=== PATIENT | male | born 1960 | race African-American/Black ===

== ENCOUNTER 2018-08-17 11:50 | Inpatient (IN) | payer SELFPAY ==
[2018-08-17] MEDS ORDERED: FOSPHENYTOIN PE 1,000 MG in NA CHLORIDE 0.9% 100 ML IV ONE (13:00)
[2018-08-17] MEDS ORDERED: NA CHLORIDE 0.9% 1,000 ML ONE ×2 (13:05→14:53)
[2018-08-17] MEDS ORDERED: ONDANSETRON 4 MG/2 ML VIAL ONE (13:05)
--- NOTE | 2018-08-17 13:06 | RAD REPORT ---
EXAM DESCRIPTION: RAD - Chest Single View - 08/17/2018 12:59 pm CLINICAL HISTORY: Seizure, altered mental status COMPARISON: None. TECHNIQUE: AP portable chest image was obtained 1248 hours . FINDINGS: Lungs are clear. Heart and vasculature are normal. No measurable pleural effusion and no p neumothorax. No acute bony abnormality seen. No acute aortic findings suspected. IMPRESSION: No acute cardiopulmonary process.
[2018-08-17 13:10] LABS: Absolute Lymphocytes (CBC) 0.7 K/uL (0.7-4.9); Absolute Monocytes 0.7 K/uL (0.1-1.3); Absolute Neutrophil 6.7 K/uL (1.8-8.0); Basophils % 0.9 % (0-1.3); Hematocrit 39.9 % (39.6-49.0); Lymphocytes % 8.2 % (15.3-44.8); MCH 32.5 pg (27.0-35.0); MCV 95.3 fL (80-100); MPV 8.8 fL (7.6-11.3); Monocytes % 8.7 % (3.3-12.3); RBC Red Blood Cell Count 4.19 M/uL (4.33-5.43)
[2018-08-17 13:14] LABS: Protime INR 1.07
[2018-08-17 13:41] LABS: ALT/SGPT 22 U/L (12-78); AST/SGOT 32 U/L (15-37); Albumin 4.3 g/dL (3.4-5.0); Alkaline Phosphatase 91 U/L (45-117); BUN Blood Urea Nitrogen 7 mg/dL (7-18); Bicarbonate 22 mmol/L (21-32); Bilirubin Direct 0.2 mg/dL (0-0.2); Bilirubin Total 0.7 mg/dL (0.2-1.0); CKMB Creatine Kinase MB 1.6 ng/mL (0.3-3.6); Creatine Phosphokinase 211 U/L (39-308); Glucose Level 126 mg/dL (74-106); Lipase 78 U/L (73-393); Potassium 3.5 mmol/L (3.5-5.1); Protein, Total 9.5 g/dL (6.4-8.2); Sodium Level 130 mmol/L (136-145); Troponin (Emerg Dept Use Only) < 0.02 ng/mL (0.0-0.045)
[2018-08-17 13:46] LABS: Barbiturates NEGATIVE (NEGATIVE); Benzodiazepines NEGATIVE (NEGATIVE); Cocaine NEGATIVE (NEGATIVE); METHAMPHETAM NEGATIVE (NEGATIVE); Methadone NEGATIVE (NEGATIVE); Opiates NEGATIVE (NEGATIVE); Phencyclidine NEGATIVE (NEGATIVE); THC Cannibis NEGATIVE (NEGATIVE)
[2018-08-17 13:53] LABS: Urine Blood 2+ (NEG); Urine Glucose NEGATIVE (NEG); Urine Protein 3+ (NEG); Urine pH 8.5 (5.0-7.0)
[2018-08-17 13:59] LABS: Urine Culture Reflex Order NOT NEEDED
[2018-08-17 14:00] LABS: Urine Bacteria <20 /HPF (NONE SEEN); Urine RBC <5 /HPF (NONE SEEN)
--- NOTE | 2018-08-17 14:25 | RAD REPORT ---
EXAM DESCRIPTION: CT - CTHCSPWOC - 08/17/2018 2:11 pm CLINICAL HISTORY: Trauma, head and neck injury. AMS, abrasion to head COMPARISON: No comparisons TECHNIQUE: Axial 5 mm thick images of the head were obtained. Axial 2 mm thick images of the cervical spine were obtained with sagittal and coronal reconstruction images generated and reviewed. All CT scans are performed using dose optimization technique as appropriate and may include automated exposure control or mA/KV adjustment according to patient size. FINDINGS: CT HEAD WITHOUT CONTRAST: No acute hemorrhage, hydrocephalus or extra-axial collection is identified.No areas of brain edema or midline shift. The paranasal sinuses and mastoids are clear.The calvarium is intact. CT CERVICAL SPINE WITHOUT CONTRAST: No fracture or subluxation.Mild lower cervical degenerative changes are present.No prevertebral soft tissues swelling is identified. The upper lung cadet are emphysematous. IMPRESSION: No acute intracranial or cervical spine findings. Mild lower cervical spondylosis.
--- NOTE | 2018-08-17 14:28 | RAD REPORT ---
EXAM DESCRIPTION: CTAbdomen Pelvis W Contrast - 08/17/2018 2:12 pm CLINICAL HISTORY: Abdominal pain. NAUSEA / VOMITING COMPARISON: No comparisons TECHNIQUE: Biphasic CT imaging of the abdomen and pelvis was performed with 100 ml non-ionic IV cont rast. All CT scans are performed using dose optimization technique as appropriate and may include automated exposure control or mA/KV adjustment according to patient size. FINDINGS: The lung bases are clear. Mild fatty liver infiltration is seen. No focal mass or intrahepatic biliary dilatation. The spleen, pancreas, adrenal glands and kidneys are within normal limits. No bowel obstruction, free air, free fluid or abscess. Aortic atherosclerosis present. The appendix i s normal. No evidence of significant lymphadenopathy. No suspicious bony findings. IMPRESSION: No acute intra-abdominal or pelvic finding.
--- NOTE | 2018-08-17 15:11 | EKG ---
Test Date: 2018-08-17 Test Time: 13:36:35 Telecommunications Officer: KARI MEASUREMENT RESULTS: Intervals: Rate: 119 ME: 122 QRSD: 76 QT: 320 QTc: 450 [place]: P: 82 ME: 122 QRS: 74 T: 73 INTERPRETIVE STATEMENTS: Sinus tachycardia Possible Left atrial enlargement Borderline ECG No previous ECG available for comparison Electronically Signed On 08-17-18 15:10:21 REGISTERED MAIL CLERK by Ralph Jovel
--- NOTE | 2018-08-17 15:58 | RAD REPORT ---
EXAM DESCRIPTION: MRI - Brain Wo Cont - 08/17/2018 3:31 pm CLINICAL HISTORY: New onset seizures COMPARISON: CT head same date TECHNIQUE: Sagittal T1-weighted images were obtained along with axial PD, heavily T2-weighted and T2 -FLAIR images. Axial DWI and ADC mapping sequences were also obtained along with coronal heavily T2-w eighted images. Seizure protocol study could not be performed due to motion. FINDINGS: No intracranial hemorrhage, mass or acute infarction. There is no edema or shift of midlin e structures. A few punctate areas of chronic ischemic change are present. Atrophy changes are mild b ut greater than typically seen at this age. There is a small focus of subcortical T2/IR signal abnorm ality right parietal lobe near the midline. No matching abnormality on diffusion-weighted imaging. Th is is probably an old area of ischemic injury. No mass effect to suggest underlying mass lesion. Tello -matter/white matter junction is preserved. Signal voids are seen as a normal finding in the major in tracranial vessels. No globe or orbital content abnormality. No tonsillar ectopia or sella abnormality. Mastoid air cells and paranasal sinuses are clear. IMPRESSION: No acute intracranial finding identifiable. Small focus of signal abnormality in the subcortical white matter right parietal lobe near the midlin e. This is probably an old ischemic injury. This is a potential seizure focus. Patient has a mild underlying atrophy and chronic ischemic change. Atrophy is more prominent than typ ically seen at this age.
--- NOTE | 2018-08-17 16:21 | ER ---
Nurse's Notes [facility] Name: Tariq Main Age: 58 yrs Sex: Male : 1960 Arrival Date: 08/17/2018 Time: 12:10 Bed 3 Private MD: Diagnosis: Alcohol dependence with withdrawal Presentation: 08/17 12:10 Presenting complaint: EMS states: Family on the scene states that patient was sitting aj1 on the couch, started shaking and fell to the ground. Patient has been altered since he fell. Abrasion noted to left forehead. Alert to name and place only. Patient was incontinent of bowel and bladder prior to arrival. Patient has vomited twice since arrival Family states they do not know his medical history or even where he lives. States he just shows up sometimes. Transition of care: patient was not received from another setting of care. Onset of symptoms was August 17, 2018. Risk Assessment: Do you want to hurt yourself or someone else? Patient reports no desire to harm self or others. 12:10 Method Of Arrival: EMS: [facility] aj1 12:10 Acuity: REY 2 aj1 12:13 Initial Sepsis Screen: Does the patient meet any 2 criteria? Temp <36.0*C (96.8*F)) or aj1 > 38.3*C (100.9*F). Altered Mental Status. Yes Does the patient have a suspected source of infection? No. Patient's initial sepsis screen is negative. Care prior to arrival: None. Triage Assessment: 12:14 General: Appears in no apparent distress. comfortable, slender, unkempt, Behavior is aj1 restless, uncooperative. Pain: Complains of pain in back and left knee Unable to use pain scale. Does not appear to understand pain scale. Neuro: Level of Consciousness is awake, alert, confused, Oriented to person, place, Speech is normal. Cardiovascular: Patient's skin is warm and dry. Respiratory: Airway is patent Respiratory effort is even, unlabored, Respiratory pattern is regular, symmetrical. GI: Pt is actively vomiting bile. : No signs and/or symptoms were reported regarding the genitourinary system. Derm: Skin is pink, warm \T\ dry. Skin temperature is hot. Musculoskeletal: Range of motion: intact in all extremities. Historical: - Allergies: 12:14 Unable to obtain; aj1 - Home Meds: 12:14 Unable to obtain [Active]; aj1 - PMHx: 12:14 Unable to obtain; aj1 - PSHx: 12:14 Unable to obtain; aj1 - Immunization history:: Flu vaccine status is unknown. - Social history:: Smoking status: unknown. - Ebola Screening: : Unable to complete screening because patient is disoriented, . Screenin:20 Abuse screen: Denies threats or abuse. Denies injuries from another. Nutritional aj1 screening: No deficits noted. Tuberculosis screening: No symptoms or risk factors identified. 19:49 Fall Risk Secondary diagnosis (15 points) seizures, IV access (20 points). Ambulatory rr5 Aid- None/Bed Rest/Nurse Assist (0 pts). Gait- Weak (10 pts.). Mental Status- Overestimates/Forgets Limitations (15 pts.). Total Duran Fall Scale indicates High Risk Score (45 or more points). Fall prevention measures have been instituted. Side Rails Up X 2 Placed Close to Nursing Station 1:1 Attendant Assigned Frequent Obs/Assessments Occuring. Assessment: 12:20 Reassessment: see triage note. aj1 12:50 Neuro: Seizure activity noted at this time. Seizure lasted approximately 1.5 minutes. aj1 Patient is post-ictal at this time. 12:50 Reassessment: Dr. Hall and Amor Enamorado, DRAGGER OUT at bedside/. aj1 13:50 Reassessment: Patient appears in no apparent distress at this time. No changes from aj1 previously documented assessment. Patient and/or family updated on plan of care and expected duration. Pain level reassessed. 14:50 Reassessment: Patient and/or family updated on plan of care and expected duration. Pain aj1 level reassessed. General: Appears in no apparent distress. comfortable, Behavior is calm, cooperative, appropriate for age. Pain: Denies pain. Neuro: Level of Consciousness is awake, alert, obeys commands, Oriented to person, place, time, Patient states that he is unsure how he got here or why he was sent here. Explained to patient that he had a seizure and his family called 911, and then he had another seizure here. Patient was asked when the last time he drank was and he states that it was 2 weeks ago.. Cardiovascular: Patient's skin is warm and dry. Rhythm is sinus tachycardia. Respiratory: Airway is patent Respiratory effort is even, unlabored, Respiratory pattern is regular, symmetrical. GI: Abdomen is flat, non-distended. 15:45 Reassessment: Patient appears in no apparent distress at this time. No changes from aj1 previously documented assessment. Patient and/or family updated on plan of care and expected duration. Pain level reassessed. Patient is alert, oriented x 3, equal unlabored respirations, skin warm/dry/pink. 16:30 Reassessment: Patient appears in no apparent distress at this time. No changes from aj1 previously documented assessment. Patient and/or family updated on plan of care and expected duration. Pain level reassessed. Patient is alert, oriented x 3, equal unlabored respirations, skin warm/dry/pink. 17:07 Reassessment: Patient and/or family updated on plan of care and expected duration. Pain aj1 level reassessed. General: Appears in no apparent distress. comfortable, Behavior is calm, cooperative, appropriate for age. Pain: Denies pain. Neuro: Level of Consciousness is awake, alert, obeys commands, Oriented to person, place, situation. Cardiovascular: Patient's skin is warm and dry. Cardiovascular: Rhythm is sinus tachycardia. Respiratory: Airway is patent Respiratory effort is even, unlabored, Respiratory pattern is regular, symmetrical. GI: Abdomen is flat, non-distended. : No signs and/or symptoms were reported regarding the genitourinary system. EENT: No signs and/or symptoms were reported regarding the EENT system. Derm: No signs and/or symptoms reported regarding the dermatologic system. Skin is pink, warm \T\ dry. normal. Musculoskeletal: No signs and/or symptoms reported regarding the musculoskeletal system. Circulation, motion, and sensation intact. 18:12 Reassessment: Patient appears in no apparent distress at this time. No changes from aj1 previously documented assessment. Patient and/or family updated on plan of care and expected duration. Pain level reassessed. Patient is alert, oriented x 3, equal unlabored respirations, skin warm/dry/pink. 19:15 General: Appears in no apparent distress. comfortable, Behavior is calm, cooperative, rr5 drowsy. Pain: Denies pain. Neuro: Level of Consciousness is obeys commands, confused, Oriented to person, place. Cardiovascular: Patient's skin is warm and dry. Respiratory: Airway is patent Respiratory effort is even, unlabored, Respiratory pattern is regular, symmetrical. GI: Abdomen is flat, non-distended. : No signs and/or symptoms were reported regarding the genitourinary system. EENT: No signs and/or symptoms were reported regarding the EENT system. Derm: No signs and/or symptoms reported regarding the dermatologic system. Skin is pink, warm \T\ dry. Musculoskeletal: No signs and/or symptoms reported regarding the musculoskeletal system. Circulation, motion, and sensation intact. Capillary refill < 3 seconds, Range of motion: intact in all extremities. Vital Signs: 12:12 BP 183 / 101; Pulse 98; Resp 18; Temp 100.6(O); Pulse Ox 95% on R/A; aj1 13:37 BP 166 / 86; Pulse 120; Resp 16 S; Pulse Ox 98% on R/A; jl7 14:19 BP 170 / 84; Pulse 100; Resp 20; Temp 100.0(O); Pulse Ox 98% on R/A; mh5 14:45 BP 174 / 82; Pulse 105; Resp 16; Pulse Ox 97% on R/A; aj1 15:45 BP 170 / 84; Pulse 107; Resp 18; Pulse Ox 95% on R/A; aj1 16:45 BP 174 / 88; Pulse 102; Resp 18; Pulse Ox 97% on R/A; aj1 18:11 BP 177 / 91; Pulse 100; Resp 18; Pulse Ox 98% on R/A; mh5 18:58 Temp 100.3(O); aj1 19:15 BP 162 / 76; Pulse 105; Resp 18; Temp 99.5; Pulse Ox 97% on R/A; rr5 20:18 BP 160 / 75; Pulse 103; Resp 17; Pulse Ox 99% on R/A; rr5 [place] Coma Score: 19:15 Eye Response: spontaneous(4). Verbal Response: confused(4). Motor Response: obeys rr5 commands(6). Total: 14. ED Course: 12:10 Patient arrived in ED. aj1 12:12 Triage completed. aj1 12:19 Arm band placed on Patient placed in an exam room, Patient triaged in ER bed 2. aj1 12:20 Patient has correct armband on for positive identification. Bed in low position. Call aj1 light in reach. Side rails up X 1. personnel monitor on. Pulse ox on. NIBP on. 12:20 No provider procedures requiring assistance completed. aj1 12:22 [facility] pm1 12:22 Ted Hall MD is Attending Physician. pm1 12:34 Gali Patrick, WILDER is Primary Nurse. aj1 12:45 Inserted saline lock: 20 gauge in right forearm, using aseptic technique. Blood iw collected. 12:50 Inserted saline lock: 20 gauge in left forearm, using aseptic technique. Blood aj1 collected. 12:59 X-ray completed. Portable x-ray completed in exam room. Patient tolerated procedure 1 well. 12:59 Chest Single View XRAY In Process Unspecified. EDMS 13:32 Radiology exam delayed due to lab results not completed at this time. (BUN/Creatinine). vr 13:46 Urine Dipstick--Ancillary (enter results) Sent. mh5 13:46 Urine Culture Sent. mh5 13:46 Blood Culture Sent. mh5 13:46 UDS Sent. mh5 14:10 CT completed. Patient tolerated procedure well. Patient moved to CT. Patient moved back nj from CT. 14:11 CT Head C Spine In Process Unspecified. EDMS 14:12 CT Abd/Pelvis - W/Contrast: IV contrast only In Process Unspecified. EDMS 14:14 EKG done, by emissions testing and repair technician. reviewed by Jose L Enamorado NP. dt2 15:22 CLEANED HIS 2ND BM. mh5 15:35 Brain Wo Cont In Process Unspecified. EDMS 16:15 Angelina Pelletier MD is Hospitalizing Provider. pm1 17:34 Repeat lab(s) drawn. sent to lab. mh5 19:48 Patient admitted, IV remains in place. intact, bleeding controlled. rr5 Administered Medications: 12:51 CANCELLED (Duplicate Order): CEREbyx 1 grams IVPB once pm1 13:05 Drug: Zofran 4 mg Route: IVP; Site: left forearm; jl7 13:15 Drug: NS 0.9% 1000 ml Route: IV; Rate: 1000 ml; Site: left forearm; jl7 13:15 Drug: CEREbyx 1 grams Route: IVPB; Site: left forearm; jl7 16:59 Drug: NS 0.9% 1000 ml Route: IV; Rate: 1000 ml; Site: right forearm; aj1 19:30 Follow up: Response: No adverse reaction; IV Status: Completed infusion; IV Intake: rr5 1000ml Intake: 19:30 IV: 1000ml; Total: 1000ml. rr5 Output: 19:35 Urine: 400ml (Voided); Total: 400ml. rr5 Outcome: 16:17 Decision to Hospitalize by Provider. pm1 19:35 Admitted to ICU accompanied by nurse, via stretcher, on monitor, with chart, Report rr5 called to deion 19:35 Condition: stable 19:35 Instructed on the need for admit. 20:27 Patient left the ED. ea Signatures: Dispatcher [employer] EDMS Gali Patrick, RN RN aj1 Yolanda Fletcher mh1 Haley Vincent, RN Amelia Daly Patrick, NP DRAGGER OUT pm1 Johan Stone Maria 5 Sofia Ridley RN RN jl7 Emma Bliss RN RN ea Teague, Danielle 2 Pavel Patton RN RN rr5 Corrections: (The following items were deleted from the chart) 12:13 12:10 Presenting complaint: EMS states: Family on the scene states that patient was aj1 sitting on the couch, started shaking and fell to the ground. Patient has been altered since he fell. Abrasion noted to left forehead. Alert to name and place only. Patient was incontinent of bowel and bladder prior to arrival aj1 12:19 12:10 Presenting complaint: EMS states: Family on the scene states that patient was aj1 sitting on the couch, started shaking and fell to the ground. Patient has been altered since he fell. Abrasion noted to left forehead. Alert to name and place only. Patient was incontinent of bowel and bladder prior to arrival. Family states they do not know his medical history or even where he lives. States he just shows up sometimes aj1 18:12 17:07 Neuro: Level of Consciousness is awake, alert, obeys commands, Oriented to aj1 person, place, time, situation, aj1
--- NOTE | 2018-08-17 16:22 | EDPHYS ---
Physician Documentation [facility] Name: Tariq Main Age: 58 yrs Sex: Male : 1960 Arrival Date: 08/17/2018 Time: 12:10 Bed 3 Private MD: ED Physician Ted Hall HPI: 08/17 13:00 This 58 yrs old Black Male presents to ER via EMS with complaints of Altered Mental pm1 Status. 13:00 The patient presents with possible seizure. Onset: The symptoms/episode began/occurred pm1 just prior to arrival. Possible causes: unknown. Associated signs and symptoms: Pertinent positives: incontinence. Current symptoms: In the emergency department the patient's symptoms have improved. Patient's baseline: Neuro: alert and fully oriented, Motor: no deficits, Ambulation: walks without assistance, Speech: normal. The patient has not experienced similar symptoms in the past. The patient has not recently seen a physician. 13:00 Per EMS, patient was sitting on the couch at a family members house, started shaking, pm1 and then fell to the floor. Patient currently alert and orient to person and place. Patient denies alcohol or drug abuse. Patient reports vomiting onset last night at 0400. Historical: - Allergies: 12:14 Unable to obtain; aj1 - Home Meds: 12:14 Unable to obtain [Active]; aj1 - PMHx: 12:14 Unable to obtain; aj1 - PSHx: 12:14 Unable to obtain; aj1 - Immunization history:: Flu vaccine status is unknown. - Social history:: Smoking status: unknown. - Ebola Screening: : Unable to complete screening because patient is disoriented, . ROS: 13:00 Constitutional: Negative for fever, chills, and weight loss, Eyes: Negative for injury, pm1 pain, redness, and discharge, ENT: Negative for injury, pain, and discharge, Neck: Negative for injury, pain, and swelling, Cardiovascular: Negative for chest pain, palpitations, and edema, Respiratory: Negative for shortness of breath, cough, wheezing, and pleuritic chest pain. 13:00 Back: Negative for injury and pain, : Negative for injury, bleeding, discharge, and swelling, MS/Extremity: Negative for injury and deformity, Skin: Negative for injury, rash, and discoloration. 13:00 Abdomen/GI: Positive for nausea and vomiting, Negative for abdominal pain, diarrhea, constipation. 13:00 Neuro: Positive for seizure activity, Negative for altered mental status, dizziness, headache, numbness, tingling, weakness. Exam: 13:00 Constitutional: This is a well developed, well nourished patient who is awake, alert, pm1 and in no acute distress. Head/Face: Normocephalic, atraumatic. Eyes: Pupils equal round and reactive to light, extra-ocular motions intact. Lids and lashes normal. Conjunctiva and sclera are non-icteric and not injected. Cornea within normal limits. Periorbital areas with no swelling, redness, or edema. ENT: Nares patent. No nasal discharge, no septal abnormalities noted. Tympanic membranes are normal and external auditory canals are clear. Oropharynx with no redness, swelling, or masses, exudates, or evidence of obstruction, uvula midline. Mucous membranes moist. Neck: Trachea midline, no thyromegaly or masses palpated, and no cervical lymphadenopathy. Supple, full range of motion without nuchal rigidity, or vertebral point tenderness. No Meningismus. Chest/axilla: Normal chest wall appearance and motion. Nontender with no deformity. No lesions are appreciated. Cardiovascular: Regular rate and rhythm with a normal S1 and S2. No gallops, murmurs, or rubs. Normal PMI, no JVD. No pulse deficits. Respiratory: Lungs have equal breath sounds bilaterally, clear to auscultation and percussion. No rales, rhonchi or wheezes noted. No increased work of breathing, no retractions or nasal flaring. Abdomen/GI: Soft, non-tender, with normal bowel sounds. No distension or tympany. No guarding or rebound. No evidence of tenderness throughout. Back: No spinal tenderness. No costovertebral tenderness. Full range of motion. Skin: Warm, dry with normal turgor. Normal color with no rashes, no lesions, and no evidence of cellulitis. MS/ Extremity: Pulses equal, no cyanosis. Neurovascular intact. Full, normal range of motion. 13:00 Neuro: Orientation: to person, place, Motor: moves all fours, strength is 5/5 in all extremities, Sensation: is normal, no obvious gross deficits. Vital Signs: 12:12 BP 183 / 101; Pulse 98; Resp 18; Temp 100.6(O); Pulse Ox 95% on R/A; aj1 13:37 BP 166 / 86; Pulse 120; Resp 16 S; Pulse Ox 98% on R/A; jl7 14:19 BP 170 / 84; Pulse 100; Resp 20; Temp 100.0(O); Pulse Ox 98% on R/A; mh5 14:45 BP 174 / 82; Pulse 105; Resp 16; Pulse Ox 97% on R/A; aj1 15:45 BP 170 / 84; Pulse 107; Resp 18; Pulse Ox 95% on R/A; aj1 16:45 BP 174 / 88; Pulse 102; Resp 18; Pulse Ox 97% on R/A; aj1 18:11 BP 177 / 91; Pulse 100; Resp 18; Pulse Ox 98% on R/A; mh5 18:58 Temp 100.3(O); aj1 19:15 BP 162 / 76; Pulse 105; Resp 18; Temp 99.5; Pulse Ox 97% on R/A; rr5 20:18 BP 160 / 75; Pulse 103; Resp 17; Pulse Ox 99% on R/A; rr5 Jorge A Coma Score: 19:15 Eye Response: spontaneous(4). Verbal Response: confused(4). Motor Response: obeys rr5 commands(6). Total: 14. MDM: 12:27 Patient medically screened. pm1 12:45 ED course: patient with witnessed generalized seizure in the ER. Dr. Hall present in pm1 room. Order given for Cerebryx . 14:48 ED course: WILDER Holden obtained Social history from family by phone. Patient with heavy pm1 [facility], " all he does is drink and smoke." Patient denied ETOH consumption to me. 16:14 Data reviewed: vital signs. Data interpreted: Pulse oximetry: on room air is 98 %. pm1 Interpretation: normal. Counseling: I had a detailed discussion with the patient and/or guardian regarding: the historical points, exam findings, and any diagnostic results supporting the discharge/admit diagnosis, lab results, radiology results, the need for further work-up and treatment in the hospital. 16:14 ED course: Patient has not consumed ETOH in 4 days. pm1 16:31 Physician consultation: Angelina Pelletier MD was called at 16:31, was contacted at 16:32, pm1 regarding admission, patient's condition, Admit patient to telemetry/inpatient per Liyah. 17:15 ED course: Informed by housekeeper manager that hospital policy to admit ETOH withdrawal pm1 to the ICU. 08/17 12:32 Order name: Basic Metabolic Panel pm1 08/17 12:32 Order name: Blood Culture Adult (2) pm1 08/17 12:32 Order name: CBC with Diff; Complete Time: 13:22 pm1 08/17 12:32 Order name: Ckmb; Complete Time: 15:48 pm1 08/17 12:32 Order name: CPK; Complete Time: 15:48 pm1 08/17 12:32 Order name: Lactate; Complete Time: 13:40 pm1 08/17 12:32 Order name: LFT's; Complete Time: 15:48 pm1 08/17 12:32 Order name: Lipase; Complete Time: 15:48 pm1 08/17 12:32 Order name: Procalcitonin; Complete Time: 15:48 pm1 08/17 12:32 Order name: Protime (+inr); Complete Time: 13:23 pm1 08/17 12:32 Order name: Ptt, Activated; Complete Time: 13:23 pm1 08/17 12:32 Order name: Troponin (emerg Dept Use Only); Complete Time: 15:48 pm1 08/17 12:32 Order name: Urine Microscopic Only; Complete Time: 15:48 pm1 08/17 12:32 Order name: ETOH Level; Complete Time: 13:24 pm1 08/17 12:32 Order name: Chest Single View XRAY; Complete Time: 13:22 pm1 08/17 12:32 Order name: CT Head C Spine; Complete Time: 15:48 pm1 08/17 12:32 Order name: CT Abd/Pelvis - W/Contrast: IV contrast only; Complete Time: 15:48 pm1 08/17 12:32 Order name: UDS; Complete Time: 15:48 pm1 08/17 12:33 Order name: Basic Metabolic Panel; Complete Time: 15:48 EDMS 08/17 12:33 Order name: Blood Culture EDMS 08/17 12:55 Order name: Urine Culture pm1 08/17 13:30 Order name: Urine Dipstick--Ancillary (enter results); Complete Time: 15:48 bd 08/17 14:28 Order name: Brain Wo Cont; Complete Time: 16:08 EDMS 08/17 17:28 Order name: CBC with Automated Diff EDMS 08/17 17:28 Order name: Comprehensive Metabolic Panel EDMS 08/17 17:28 Order name: Liver (Hepatic) Function EDMS 08/17 18:14 Order name: Lactate Sepsis 2 HR Follow-up; Complete Time: 18:40 EDMS 08/17 12:32 Order name: Accucheck; Complete Time: 15:01 pm1 08/17 12:32 Order name: Cardiac monitoring; Complete Time: 12:35 pm1 08/17 12:32 Order name: EKG - Nurse/Tech; Complete Time: 13:57 pm1 08/17 12:32 Order name: IV Saline Lock - Large Bore; Complete Time: 13:24 pm1 08/17 12:32 Order name: Labs collected and sent; Complete Time: 13:24 pm1 08/17 12:32 Order name: O2 Per Protocol; Complete Time: 12:35 pm1 08/17 12:32 Order name: O2 Sat Monitoring; Complete Time: 12:35 pm1 08/17 12:32 Order name: Urine Dipstick-Ancillary (obtain specimen); Complete Time: 13:23 pm1 08/17 14:12 Order name: EKG; Complete Time: 14:13 bd 08/17 17:28 Order name: NPO EDMS Administered Medications: 12:51 CANCELLED (Duplicate Order): CEREbyx 1 grams IVPB once pm1 13:05 Drug: Zofran 4 mg Route: IVP; Site: left forearm; jl7 13:15 Drug: NS 0.9% 1000 ml Route: IV; Rate: 1000 ml; Site: left forearm; jl7 13:15 Drug: CEREbyx 1 grams Route: IVPB; Site: left forearm; jl7 16:59 Drug: NS 0.9% 1000 ml Route: IV; Rate: 1000 ml; Site: right forearm; aj1 19:30 Follow up: Response: No adverse reaction; IV Status: Completed infusion; IV Intake: rr5 1000ml Disposition: 08/18 00:09 Co-signature as Attending Physician, Ted Hall MD I agree with the assessment and kdr plan of care. Disposition: 08/17/18 16:17 Hospitalization ordered by Angelina Pelletier for Inpatient Admission. Preliminary diagnosis is Alcohol dependence with withdrawal. - Bed requested for Intensive Care Unit. - Status is Inpatient Admission. ea - Condition is Stable. - Problem is new. - Symptoms have improved. UTI on Admission? No Signatures: Dispatcher [employer] EDMS Gali Patrick, RN RN aj1 Nilda Calvillo RN RN dw Ted Hall MD MD [facility] Haley Vincent RN RN Jose L Enamorado, BOTTOMING MACHINE OPERATOR BOTTOMING MACHINE OPERATOR pm1 Sofia Ridley RN RN jl7 Emma Bliss RN RN ea Roque, Raymond RN rr5 Corrections: (The following items were deleted from the chart) 08/17 12:51 12:50 CEREbyx 1 grams IVPB once ordered. pm1 16:31 16:17 Hospitalization Ordered by Angelina Pelletier MD for Inpatient Admission. Preliminary pm1 diagnosis is Alcohol dependence with withdrawal. Bed requested for Intensive Care Unit. Status is Inpatient Admission. Condition is Stable. Problem is new. Symptoms have improved. UTI on Admission? No. pm1 17:15 16:31 08/17/2018 16:17 Hospitalization Ordered by Angelina Pelletier MD for Inpatient pm1 Admission. Preliminary diagnosis is Alcohol dependence with withdrawal. Bed requested for Telemetry/MedSurg (Inpatient). Status is Inpatient Admission. Condition is Stable. Problem is new. Symptoms have improved. UTI on Admission? No. pm1 18:36 17:15 08/17/2018 16:17 Hospitalization Ordered by Angelina Pelletier MD for Inpatient dw Admission. Preliminary diagnosis is Alcohol dependence with withdrawal. Bed requested for Intensive Care Unit. Status is Inpatient Admission. Condition is Stable. Problem is new. Symptoms have improved. UTI on Admission? No. pm1 20:27 18:36 08/17/2018 16:17 Hospitalization Ordered by Angelina Pelletier MD for Inpatient ea Admission. Preliminary diagnosis is Alcohol dependence with withdrawal. Bed requested for Intensive Care Unit. Status is Inpatient Admission. Condition is Stable. Problem is new. Symptoms have improved. UTI on Admission? No. dw
[2018-08-17] MEDS ORDERED: ACETAMINOPHEN 500 MG TAB PO PRN (17:20)
[2018-08-17] MEDS ORDERED: ONDANSETRON 4 MG/2 ML VIAL IV PRN (17:20)
[2018-08-17] MEDS ORDERED: LORazepam 2 MG/ML VIAL IV PRN (17:20)
[2018-08-17] MEDS: chlordiazePOXIDE HCl 25 MG CAP PO SCH (18:00)
[2018-08-17] MEDS: FOLIC ACID 1 MG, MULTIVITAMINS INJ 10 ML, THIAMINE HCL 100 MG in NA CHLORIDE 0.9% 1,000 ML IV SCH (18:00)
[2018-08-17] MEDS ORDERED: chlordiazePOXIDE HCl 25 MG CAP ONE (18:57)
[2018-08-18] MEDS: chlordiazePOXIDE HCl 25 MG CAP PO SCH ×4 (01:02→16:55)
[2018-08-18 05:53] LABS: ALT/SGPT 18 U/L (12-78); AST/SGOT 38 U/L (15-37); Albumin 3.6 g/dL (3.4-5.0); Alkaline Phosphatase 70 U/L (45-117); BUN Blood Urea Nitrogen 8 mg/dL (7-18); Bicarbonate 27 mmol/L (21-32); Bilirubin Direct 0.3 mg/dL (0-0.2); Bilirubin Total 0.9 mg/dL (0.2-1.0); Glucose Level 89 mg/dL (74-106); Magnesium 1.9 mg/dL (1.8-2.4); Potassium 3.2 mmol/L (3.5-5.1); Sodium Level 134 mmol/L (136-145)
[2018-08-18 06:50] LABS: Absolute Lymphocytes (CBC) 1.1 K/uL (0.7-4.9); Absolute Monocytes 0.8 K/uL (0.1-1.3); Absolute Neutrophil 3.7 K/uL (1.8-8.0); Basophils % 0.6 % (0-1.3); Eosinophils % 0.5 % (0-4.4); Hematocrit 37.3 % (39.6-49.0); Lymphocytes % 20.1 % (15.3-44.8); MCH 32.1 pg (27.0-35.0); MCV 93.2 fL (80-100); MPV 8.9 fL (7.6-11.3); Monocytes % 13.9 % (3.3-12.3)
[2018-08-18] MEDS ORDERED: KCL 20 MEQ/100 mL IVPB 20 MEQ/100 ML BAG IV SCH (07:00)
[2018-08-18] MEDS ORDERED: POTASSIUM CL SA 10 MEQ TAB PO ONE (08:00)
[2018-08-18] MEDS: levETIRAcetam 500 MG TAB PO SCH ×2 (08:20→21:04)
[2018-08-18] MEDS ORDERED: FOLIC ACID 1 MG TABLET PO SCH (09:00)
--- NOTE | 2018-08-18 13:55 | P.HP ---
Certification for Inpatient Patient admitted to: Inpatient With expected LOS: >2 Midnights Patient will require the following post-hospital care: None Practitioner: I am a practitioner with admitting privileges, knowledge of patient current condition, hospital course, and medical plan of care. Services: Services provided to patient in accordance with Admission requirements found in Title 42 Section 412.3 of the Code of Federal Regulations Patient History Date of Service: 08/17/18 Reason for admission: Alcohol withdrawal seizures History of Present Illness: Patient is a 58-year-old gentleman who came to the hospital after suffering from an alcohol withdrawal seizure. He apparently stopped drinking about a week ago. He has been drinking since he was a teenager and normally drinks a 6 pack a day. Patient got tired of drinking and he stopped over the last week. Patient was at home on his couch with his family when he started shaking. He appeared to have a seizure. He was brought into the emergency room for further evaluation. in the ER he was given fosphenytoin. He has been doing better and not feeling like he is going to have a seizure. He will be admitted to the hospital for further evaluation and control of his alcohol withdrawal seizures. Allergies Unable to Assess Allergy (Unverified 08/17/18 17:52) - Past Medical/Surgical History Past Medical History: Patient denies medical history Past Surgical History: Patient denies surgical history - Family History Father Family History: Reviewed- Non-Contributory - Social History Smoking Status: Current every day smoker Alcohol use: Yes CD- Drugs: No Place of Residence: Home Review of Systems 10-point ROS is otherwise unremarkable Physical Examination - Vital Signs Temperature: 98.6 F Blood Pressure: 115/67 Pulse: 85 Respirations: 21 Pulse Ox (%): 97 - Physical Exam General: Alert, In no apparent distress, Oriented x3 HEENT: Atraumatic, PERRLA, Mucous membr. moist/pink, EOMI, Sclerae nonicteric Neck: Supple, 2+ carotid pulse no bruit, No LAD, Without JVD or thyroid abnormality Respiratory: Clear to auscultation bilaterally, Normal air movement Cardiovascular: Regular rate/rhythm, Normal S1 S2, No murmurs Gastrointestinal: Normal bowel sounds, Soft and benign, Non-distended, No tenderness Musculoskeletal: No clubbing, No swelling, No tenderness Integumentary: No rashes Neurological: Normal gait, Normal speech, Normal strength at 5/5 x4 extr, Normal tone, Sensation intact, Cranial nerves 3-12 intact, Normal affect Lymphatics: No axilla or inguinal lymphadenopathy - Studies Laboratory Data (last 24 hrs) 08/17/18 12:50: Sodium 130 L, Potassium 3.5, BUN 7, Creatinine 0.90, Glucose 126 H, Total Bilirubin 0.7, AST 32, ALT 22, Alkaline Phosphatase 91, Lipase 78 Assessment & Plan - Problems (Diagnosis) (1) Alcohol withdrawal seizure Current Visit: Yes Status: Acute (2) Delirium tremens Current Visit: Yes Status: Acute - Plan Plan: 1. antiepileptics 2. Librium 3. Neurochecks 4. IV hydration with banana bag 5. monitor liver function and monitor cardiac status as patient with the risk of cirrhosis and dilated cardiomyopathy 6. GI DVT prophylaxis Discharge Plan: Home Plan to discharge in: Greater than 2 days - Advance Directives Does patient have a Living Will: No Does patient have a Durable POA for Healthcare: No - Code Status/Comfort Care Code Status: Full Code Critical Care: No Time Spent Managing PTS Care (In Minutes): 50
--- NOTE | 2018-08-18 15:55 | P.PN ---
Subjective Date of Service: 08/18/18 Chief Complaint: Alcohol withdrawal seizures Subjective: No new changes, No C/O voiced Patient seen and examined at bedside. No family at bedside. Chart reviewed and case discussed with nursing staff. No Acute events overnight, no seizures overnight. Review of Systems As noted Physical Examination - Vital Signs Temperature: 98.6 F Blood Pressure: 115/67 Pulse: 85 Respirations: 21 Pulse Ox (%): 97 - Physical Exam General: Alert, In no apparent distress, Oriented x3 HEENT: Atraumatic, PERRLA, EOMI Neck: Supple, JVD not distended Respiratory: Clear to auscultation bilaterally, Normal air movement Cardiovascular: Regular rate/rhythm, Normal S1 S2 Gastrointestinal: Normal bowel sounds, No tenderness Musculoskeletal: No tenderness Integumentary: No rashes Neurological: Normal speech, Normal tone, Normal affect Assessment And Plan - Plan - Problems (Diagnosis) (1) Alcohol withdrawal seizure Current Visit: Yes Status: Acute (2) Delirium tremens Current Visit: Yes Status: Acute - Plan Plan: 1. Continue antiepileptics 2. Continue Librium. Ativan p.r.n. 3. Neurochecks 4. IV hydration with banana bag 5. monitor liver function and monitor cardiac status as patient with the risk of cirrhosis and dilated cardiomyopathy 6. GI DVT prophylaxis Disposition: Stable, Transfer to floor Physician Review: Patient Assessed, Agree with Above Assessment and Plan Time Spent Managing PTS Care (In Minutes): 45
[2018-08-18] MEDS: FOLIC ACID 1 MG, MULTIVITAMINS INJ 10 ML, THIAMINE HCL 100 MG in NA CHLORIDE 0.9% 1,000 ML IV SCH (18:12)
[2018-08-19] MEDS: chlordiazePOXIDE HCl 25 MG CAP PO SCH ×3 (01:00→16:57)
[2018-08-19 06:53] VITALS: BMI 18.8
[2018-08-19 08:15] LABS: BUN Blood Urea Nitrogen 13 mg/dL (7-18); Bicarbonate 28 mmol/L (21-32); Glucose Level 94 mg/dL (74-106); Magnesium 2.2 mg/dL (1.8-2.4); Phosphorus 3.1 mg/dL (2.5-4.9); Potassium 3.5 mmol/L (3.5-5.1); Sodium Level 139 mmol/L (136-145)
[2018-08-19] MEDS: levETIRAcetam 500 MG TAB PO SCH ×2 (08:38→20:14)
[2018-08-19] MEDS ORDERED: POTASSIUM CL SA 10 MEQ TAB PO ONE (09:22)
--- NOTE | 2018-08-19 11:21 | P.PN ---
Subjective Date of Service: 08/19/18 Chief Complaint: Alcohol withdrawal seizures Subjective: No new changes, No C/O voiced, Improving Patient seen and examined at bedside. No family at bedside. Chart reviewed and case discussed with nursing staff. No Acute events overnight, no seizures overnight. Review of Systems As noted Physical Examination - Vital Signs Temperature: 97.9 F Blood Pressure: 149/72 Pulse: 73 Respirations: 12 Pulse Ox (%): 100 - Physical Exam General: Alert, In no apparent distress, Oriented x3 HEENT: Atraumatic, PERRLA, EOMI Neck: Supple, JVD not distended Respiratory: Clear to auscultation bilaterally, Normal air movement Cardiovascular: Regular rate/rhythm, Normal S1 S2 Gastrointestinal: Normal bowel sounds, No tenderness Musculoskeletal: No tenderness Integumentary: No rashes Neurological: Normal speech, Normal tone, Normal affect Lymphatics: No axilla or inguinal lymphadenopathy - Studies Microbiology Data (last 24 hrs): 08/17/18 13:18 Catheterized Urine [place] Count - Final 08/17/18 13:18 Catheterized Urine - Final Assessment And Plan - Plan - Problems (Diagnosis) (1) Alcohol withdrawal seizure Current Visit: Yes Status: Acute (2) Delirium tremens Current Visit: Yes Status: Acute - Plan Plan: 1. Continue antiepileptics 2. Continue Librium. Ativan p.r.n. 3. Neurochecks 4. IV hydration with banana bag, switched to oral 5. monitor liver function and monitor cardiac status as patient with the risk of cirrhosis and dilated cardiomyopathy 6. GI DVT prophylaxis 7. Physical therapy ordered Disposition: Stable, Transfer to floor. Pending physical therapy recommendations. Likely discharge in the next 24 48 hr Physician Review: Patient Assessed, Agree with Above Assessment and Plan
[2018-08-19] MEDS: MULTIVITAMIN TAB PO SCH (12:24)
[2018-08-19] MEDS: FOLIC ACID 1 MG TABLET PO SCH (12:24)
[2018-08-19] MEDS: THIAMINE HCL 100 MG TABLET PO SCH (12:24)
[2018-08-20] MEDS: chlordiazePOXIDE HCl 25 MG CAP PO SCH ×3 (00:57→17:53)
[2018-08-20] MEDS: NICOTINE 21 MG/PAT TD SCH ×2 (00:57→09:00)
[2018-08-20 04:27] LABS: BUN Blood Urea Nitrogen 9 mg/dL (7-18); Bicarbonate 27 mmol/L (21-32); Glucose Level 102 mg/dL (74-106); Potassium 3.7 mmol/L (3.5-5.1); Sodium Level 139 mmol/L (136-145)
[2018-08-20] MEDS ORDERED: POTASSIUM 25 MEQ EFFERV TAB PO ONE (05:56)
[2018-08-20 08:19] VITALS: O2SAT 98
[2018-08-20] MEDS: THIAMINE HCL 100 MG TABLET PO SCH (10:14)
[2018-08-20] MEDS: FOLIC ACID 1 MG TABLET PO SCH (10:14)
[2018-08-20] MEDS: MULTIVITAMIN TAB PO SCH (10:14)
[2018-08-20] MEDS: levETIRAcetam 500 MG TAB PO SCH (10:15)
[2018-08-20 17:23] VITALS: BP 109/62; TEMP 97.8
--- NOTE | 2018-08-20 18:01 | P.DS ---
Admission Date: 08/17/18 Discharge Date: 08/20/18 Disposition: ROUTINE DISCHARGE Discharge Condition: GOOD Reason for Admission: Alcohol withdrawal seizures Brief History of Present Illness: Patient is a 58-year-old gentleman who came to the hospital after suffering from an alcohol withdrawal seizure. He apparently stopped drinking about a week ago. He has been drinking since he was a teenager and normally drinks a 6 pack a day. Patient got tired of drinking and he stopped over the last week. Patient was at home on his couch with his family when he started shaking. He appeared to have a seizure. He was brought into the emergency room for further evaluation. in the ER he was given fosphenytoin. He has been doing better and not feeling like he is going to have a seizure. He will be admitted to the hospital for further evaluation and control of his alcohol withdrawal seizures Hospital Course: The patient was admitted for alcohol withdrawal seizure. He was started on Librium, Ativan p.r.n.. He was also given antiepileptics here along with IV hydration with banana bag, which was then switched to oral. Physical therapy was consulted, he did really well with physical therapy and they recommended no further physical therapy sessions at this time. Patient was counseled on alcohol cessation, though does not agree and family also thinks he will likely go home and drink again. He has a history of noncompliance with alcohol. Therefore will not discharge him on oral Librium, as he will likely drink alcohol after discharge. At the time of discharge, he was hemodynamically stable, alert oriented x3, tolerating on oral diet and ambulating without any concerns. His symptoms/diagnosis were explained to him, all questions were answered and patient verbalized understanding. He was instructed to follow up with primary care physician in 1 week. Vital Signs/Physical Exam: Temp Pulse Resp BP Pulse Ox 97.8 F 65 18 109/62 99 08/20/18 16:00 08/20/18 16:00 08/20/18 16:00 08/20/18 16:00 08/20/18 16:00 General: Alert, In no apparent distress HEENT: Atraumatic, PERRLA, EOMI Neck: Supple, JVD not distended Respiratory: Clear to auscultation bilaterally, Normal air movement Cardiovascular: Regular rate/rhythm, Normal S1 S2 Gastrointestinal: Normal bowel sounds, No tenderness Musculoskeletal: No tenderness Integumentary: No rashes Neurological: Normal speech, Normal tone, Normal affect Lymphatics: No axilla or inguinal lymphadenopathy Laboratory Data at Discharge: WBC 5.7 K/uL (4.3-10.9) D 08/18/18 05:00 Hgb 12.8 g/dL (13.6-17.9) L 08/18/18 05:00 Hct 37.3 % (39.6-49.0) L 08/18/18 05:00 Plt Count 118 K/uL (152-406) L 08/18/18 05:00 PT 12.6 SECONDS (9.5-12.5) H 08/17/18 12:50 INR 1.07 08/17/18 12:50 APTT 30.7 SECONDS (24.3-36.9) 08/17/18 12:50 Sodium 139 mmol/L (136-145) 08/20/18 03:34 Potassium 3.7 mmol/L (3.5-5.1) 08/20/18 03:34 BUN 9 mg/dL (7-18) 08/20/18 03:34 Creatinine 0.60 mg/dL (0.55-1.3) 08/20/18 03:34 Glucose 102 mg/dL (74-106) 08/20/18 03:34 Phosphorus 3.1 mg/dL (2.5-4.9) 08/19/18 07:33 Magnesium 2.2 mg/dL (1.8-2.4) 08/19/18 07:33 Total Bilirubin 0.9 mg/dL (0.2-1.0) 08/18/18 05:00 AST 38 U/L (15-37) H 08/18/18 05:00 ALT 18 U/L (12-78) 08/18/18 05:00 Alkaline Phosphatase 70 U/L (45-117) 08/18/18 05:00 Lipase 78 U/L (73-393) 08/17/18 12:50 Home Medications: Multivit,Ther Iron,Ca,FA & Min [Centrum Tablet*] 1 tab PO DAILY #30 tab Thiamine HCl [Vitamin B-1*] 100 mg PO DAILY #30 tablet 08/20/18 New Medications: Multivit,Ther Iron,Ca,FA & Min [Centrum Tablet*] 1 tab PO DAILY #30 tab Thiamine HCl [Vitamin B-1*] 100 mg PO DAILY #30 tablet Patient Discharge Instructions: Please follow up with the primary care physician in 1 week Diet: Regular Activity: Fall precautions Physician Review: Patient Assessed, Agree with Above Assessment and Plan Time spent managing pt's care (in minutes): 55
== END 2018-08-20 19:25 | disposition home or self-care (01) | DRG 101 ==
LOC: ER 11:50 → ERHOLD 17:25 → 3RD-ICU 20:15 → 4TH 08-19 15:00
PROVIDERS: ADMIT Family Medicine; ATTEND Family Medicine
DX: G40.89 Other seizures (principal); F10.239 Alcohol dependence with withdrawal, unspecified; F10.231 Alcohol dependence with withdrawal delirium; Z91.19 Patient's noncompliance with other medical treatment and regimen; F17.210 Nicotine dependence, cigarettes, uncomplicated
CPT/HCPCS: 36415; 70450; 70551; 71045; 72125; 74177; 80048; 80053; 80076; 80307; 80320; 81003; 81015; 82248; 82550; 82553; 83605; 83690; 83735; 84100; 84132; 84145; 84484; 85025; 85610; 85730; 87040; 87086; 87088; 93005; 96361; 96374; 96375; 97162; 99285; J2405; J3411; J7030; Q2009; Q9967

== ENCOUNTER 2018-11-07 17:22 | Emergency (ER) | payer SELFPAY ==
[2018-11-07 17:56] LABS: Urine Blood NEGATIVE (NEG); Urine Glucose NEGATIVE (NEG); Urine Protein NEGATIVE (NEG); Urine Specific Gravity <1.005 (1.005-1.030); Urine pH 5.5 (5.0-7.0)
[2018-11-07 18:14] LABS: Barbiturates NEGATIVE (NEGATIVE); Benzodiazepines NEGATIVE (NEGATIVE); Cocaine NEGATIVE (NEGATIVE); METHAMPHETAM NEGATIVE (NEGATIVE); Methadone NEGATIVE (NEGATIVE); Opiates NEGATIVE (NEGATIVE); Phencyclidine NEGATIVE (NEGATIVE); THC Cannibis NEGATIVE (NEGATIVE)
[2018-11-07 18:15] LABS: Absolute Lymphocytes (CBC) 3.3 K/uL (0.7-4.9); Absolute Monocytes 0.5 K/uL (0.1-1.3); Absolute Neutrophil 1.3 K/uL (1.8-8.0); Basophils % 1.2 % (0-1.3); Eosinophils % 7.1 % (0-4.4); Hematocrit 35.9 % (39.6-49.0); Lymphocytes % 58.6 % (15.3-44.8); MPV 7.6 fL (7.6-11.3); Monocytes % 9.7 % (3.3-12.3); RBC Red Blood Cell Count 3.78 M/uL (4.33-5.43)
[2018-11-07 18:23] LABS: BUN Blood Urea Nitrogen 12 mg/dL (7-18); Bicarbonate 27 mmol/L (21-32); Glucose Level 123 mg/dL (74-106); Potassium 3.5 mmol/L (3.5-5.1); Sodium Level 146 mmol/L (136-145)
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
[2018-11-07] MEDS ORDERED: NA CHLORIDE 0.9% 1,000 ML ONE (19:42)
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
[2018-11-07 20:54] VITALS: TEMP 97.8
[2018-11-07 20:59] VITALS: O2SAT 97
[2018-11-07 21:01] VITALS: BP 109/72
== END 2018-11-07 20:38 ==
LOC: ER 17:22
DX: R10.9 Unspecified abdominal pain (principal); F10.120 Alcohol abuse with intoxication, uncomplicated; V49.9XXA Car occupant (driver) (passenger) injured in unspecified traffic accident, initial encounter
CPT/HCPCS: 36415; 70450; 71260; 72125; 74177; 80048; 80307; 80320; 81003; 85025; 86850; 86900; 86901; 96360; 99285; J7030; Q9967

== ENCOUNTER 2018-11-08 20:35 | Inpatient (IN) | payer SELFPAY ==
[2018-11-08 21:45] LABS: Absolute Lymphocytes (CBC) 2.6 K/uL (0.7-4.9); Absolute Monocytes 0.7 K/uL (0.1-1.3); Absolute Neutrophil 2.5 K/uL (1.8-8.0); Basophils % 1.4 % (0-1.3); Eosinophils % 4.5 % (0-4.4); Lymphocytes % 41.9 % (15.3-44.8); MPV 8.4 fL (7.6-11.3); Monocytes % 11.5 % (3.3-12.3); RBC Red Blood Cell Count 4.09 M/uL (4.33-5.43)
[2018-11-08 21:46] LABS: Protime INR 1.1
[2018-11-08] MEDS ORDERED: NA CHLORIDE 0.9% 100 ML IV ONE (21:48)
[2018-11-08] MEDS ORDERED: NA CHLORIDE 0.9% 1,000 ML ONE (21:48)
[2018-11-08] MEDS ORDERED: LORazepam 2 MG/ML VIAL ONE (21:48)
[2018-11-08] MEDS ORDERED: THIAMINE 200 MG/2 ML INJ ONE (21:48)
[2018-11-08] MEDS ORDERED: MULTIVITAMINS 10 ML VIAL (INJ) IV ONE (21:49)
[2018-11-08] MEDS ORDERED: FOSPHENYTOIN PE 500 MG/10 ML VIAL ONE (21:50)
[2018-11-08] MEDS ORDERED: FOLIC ACID 5 MG/ML VIAL ONE (21:50)
[2018-11-08 21:57] LABS: ALT/SGPT 16 U/L (12-78); AST/SGOT 27 U/L (15-37); Albumin 3.6 g/dL (3.4-5.0); Alkaline Phosphatase 88 U/L (45-117); BUN Blood Urea Nitrogen 7 mg/dL (7-18); Bicarbonate 31 mmol/L (21-32); Bilirubin Direct 0.2 mg/dL (0-0.2); Bilirubin Total 0.5 mg/dL (0.2-1.0); Glucose Level 135 mg/dL (74-106); Potassium 3.7 mmol/L (3.5-5.1); Protein, Total 7.6 g/dL (6.4-8.2); Sodium Level 139 mmol/L (136-145)
[2018-11-09 00:52] LABS: Urine Blood NEGATIVE (NEG); Urine Glucose NEGATIVE (NEG); Urine Protein NEGATIVE (NEG); Urine pH 8.5 (5.0-7.0)
[2018-11-09 01:16] LABS: Barbiturates NEGATIVE (NEGATIVE); Benzodiazepines NEGATIVE (NEGATIVE); Cocaine NEGATIVE (NEGATIVE); METHAMPHETAM NEGATIVE (NEGATIVE); Methadone NEGATIVE (NEGATIVE); Opiates NEGATIVE (NEGATIVE); Phencyclidine NEGATIVE (NEGATIVE); THC Cannibis NEGATIVE (NEGATIVE)
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
[2018-11-09] MEDS ORDERED: ACETAMINOPHEN 500 MG TAB PO PRN (01:36)
[2018-11-09] MEDS ORDERED: ONDANSETRON 4 MG/2 ML VIAL IV PRN ×2 (01:36)
[2018-11-09] MEDS ORDERED: MORPHINE 2 MG/ML SYR IV PRN (01:36)
[2018-11-09] MEDS ORDERED: FLUMAZENIL 0.1 MG/ML (5 mL VIAL) IV PRN (01:36)
[2018-11-09] MEDS ORDERED: LORazepam 2 MG/ML VIAL IV PRN (01:36)
[2018-11-09] MEDS: NA CHLORIDE 0.9% 1,000 ML IV SCH ×3 (03:17→22:00)
[2018-11-09 04:51] VITALS: BMI 17.9
[2018-11-09] MEDS: METOPROLOL TAR 25 MG TAB PO SCH ×2 (05:46→17:06)
[2018-11-09] MEDS: chlordiazePOXIDE HCl 5 MG CAP PO SCH ×4 (05:47→23:31)
[2018-11-09 06:18] LABS: Absolute Lymphocytes (CBC) 1.6 K/uL (0.7-4.9); Absolute Monocytes 0.8 K/uL (0.1-1.3); Absolute Neutrophil 2.6 K/uL (1.8-8.0); Basophils % 1.4 % (0-1.3); Eosinophils % 2.3 % (0-4.4); Hematocrit 36.6 % (39.6-49.0); Lymphocytes % 31.4 % (15.3-44.8); MPV 8.1 fL (7.6-11.3); Monocytes % 14.8 % (3.3-12.3); RBC Red Blood Cell Count 3.95 M/uL (4.33-5.43)
[2018-11-09 06:38] LABS: Protime INR 1.15
[2018-11-09 06:45] LABS: ALT/SGPT 15 U/L (12-78); AST/SGOT 28 U/L (15-37); Albumin 3.5 g/dL (3.4-5.0); Alkaline Phosphatase 81 U/L (45-117); BUN Blood Urea Nitrogen 5 mg/dL (7-18); Bicarbonate 31 mmol/L (21-32); Bilirubin Total 0.6 mg/dL (0.2-1.0); Glucose Level 89 mg/dL (74-106); Magnesium 1.6 mg/dL (1.8-2.4); Phosphorus 2.8 mg/dL (2.5-4.9); Potassium 3.4 mmol/L (3.5-5.1); Protein, Total 7.5 g/dL (6.4-8.2); Sodium Level 137 mmol/L (136-145)
--- NOTE | 2018-11-09 06:52 | EKG ---
Test Date: 2018-11-08 Test Time: 22:17:12 House Sitter: DONIS MEASUREMENT RESULTS: Intervals: Rate: 73 [place]: 122 QRSD: 70 QT: 388 QTc: 427 [place]: P: 81 [place]: 122 QRS: 63 T: 65 INTERPRETIVE STATEMENTS: Normal sinus rhythm ST elevation, probably due to early repolarization Borderline ECG No previous ECG available for comparison Electronically Signed On 11-09-18 06:50:47 [employer] by Ralph Jovel
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
--- NOTE | 2018-11-09 07:42 | RAD REPORT ---
EXAM DESCRIPTION: RAD - Chest Single View - 11/08/2018 9:26 pm CLINICAL HISTORY: Altered mental status, shortness of breath COMPARISON: August 2018 TECHNIQUE: AP portable chest image was obtained 3 hours . FINDINGS: No focal lung parenchymal process seen. No failure or volume overload. Interstitial markin gs match the comparison. Heart and vasculature are normal. No measurable pleural effusion and no pneu mothorax. No acute bony abnormality seen. No acute aortic findings suspected. IMPRESSION: No acute cardiopulmonary process. No significant interval change.
[2018-11-09] MEDS ORDERED: INFLUENZA VACCINE (for 3y+) 0.5 ML DOSE IMVAC ONE (08:00)
[2018-11-09] MEDS: ENOXAPARIN 40 MG/0.4 ML SQ SCH (08:30)
[2018-11-09] MEDS: MULTIVITAMIN TAB PO SCH (08:31)
[2018-11-09] MEDS: THIAMINE HCL 100 MG TABLET PO SCH (08:31)
[2018-11-09] MEDS: FOLIC ACID 1 MG TABLET PO SCH (08:31)
[2018-11-09] MEDS ORDERED: POTASSIUM 25 MEQ EFFERV TAB PO ONE (09:00)
[2018-11-09] MEDS ORDERED: MAGNESIUM SULFATE 1 gm IVPB 1 GM/100 ML BAG IV ONE (09:00)
[2018-11-09] MEDS ORDERED: FOLIC ACID 1 MG, MULTIVITAMINS INJ 10 ML, THIAMINE HCL 100 MG in NA CHLORIDE 0.9% 1,000 ML IV SCH (09:00)
--- NOTE | 2018-11-09 13:24 | RAD REPORT ---
EXAM DESCRIPTION: CT - Head C Spine Mpr Wo Con - 11/08/2018 10:38 pm CLINICAL HISTORY: 58 years Male AMS COMPARISON: None TECHNIQUE: Images of the head and cervical spine were obtained in axial, sagittal, and coronal plane s. This exam was performed according to our departmental dose-optimization program which includes use of Automated Exposure Control, adjustment of the mA and/or kV according to patient size and/or use of i terative reconstruction technique. FINDINGS: CT brain: Ventricular system is age-appropriate in size. No abnormal areas of increased or decreased attenuation are seen involving the brain parenchyma. No e xtra-axial fluid collections noted. No evidence for skull fracture. Symmetric aeration of mastoid air cells bilaterally. Unremarkable par anasal sinuses. CT cervical spine: Height of the vertebral bodies is intact. Satisfactory alignment articular facets. Intact odontoid and predental space. Prevertebral soft tissues appear normal. Intact ring C1. Posteri or elements intact the levels. Intact occipital condyles. Marked anterior osteophyte formation C3-4, C4-5, C5-6, and C6-7 levels. Marginal spur formation with neural foraminal narrowing bilaterally C3-4, C5-6, and C6-7 levels. Mild right paracentral protrusion C5-6 osteophyte disc complex. Diffuse bulging C6-7 osteophyte disc complex. Chronic changes lung apices bilaterally. IMPRESSION: No acute intracranial abnormality. No evidence for hemorrhage, mass lesion, or large acu te infarction. No acute fracture or subluxation seen. Marked multilevel osteoarthritic change. Mild right paracentra l protrusion C5-6 osteophyte disc complex. Electronically signed by: Alpa Noriega MD 11/08/2018 10:29 PM [facility] Due to temporary technical issues with the PACS/Fluency reporting system, reports are being signed by the in house radiologist as a courtesy to ensure prompt reporting. The interpreting radiologist is f ully responsible for the content of the report.
[2018-11-09] MEDS: NICOTINE 21 MG/PAT TD SCH (18:53)
[2018-11-10 05:20] LABS: Absolute Lymphocytes (CBC) 1.4 K/uL (0.7-4.9); Absolute Monocytes 0.5 K/uL (0.1-1.3); Absolute Neutrophil 1.2 K/uL (1.8-8.0); Basophils % 1.3 % (0-1.3); Hematocrit 36.5 % (39.6-49.0); Lymphocytes % 40.2 % (15.3-44.8); Monocytes % 14.6 % (3.3-12.3); RBC Red Blood Cell Count 3.87 M/uL (4.33-5.43)
[2018-11-10 05:42] LABS: ALT/SGPT 13 U/L (12-78); AST/SGOT 19 U/L (15-37); Albumin 3.1 g/dL (3.4-5.0); Alkaline Phosphatase 69 U/L (45-117); BUN Blood Urea Nitrogen 6 mg/dL (7-18); Bicarbonate 30 mmol/L (21-32); Bilirubin Total 0.6 mg/dL (0.2-1.0); Glucose Level 95 mg/dL (74-106); Potassium 3.7 mmol/L (3.5-5.1); Protein, Total 6.6 g/dL (6.4-8.2); Sodium Level 139 mmol/L (136-145)
[2018-11-10] MEDS: chlordiazePOXIDE HCl 5 MG CAP PO SCH (06:28)
[2018-11-10] MEDS: METOPROLOL TAR 25 MG TAB PO SCH (06:28)
[2018-11-10] MEDS: NA CHLORIDE 0.9% 1,000 ML IV SCH (06:29)
[2018-11-10 08:06] VITALS: BP 108/56; TEMP 97.4
[2018-11-10 08:06] LABS: Magnesium 1.8 mg/dL (1.8-2.4)
[2018-11-10] MEDS ORDERED: POTASSIUM CL SA 10 MEQ TAB PO ONE (09:00)
[2018-11-10] MEDS: NICOTINE 21 MG/PAT TD SCH (09:05)
[2018-11-10] MEDS: ENOXAPARIN 40 MG/0.4 ML SQ SCH (09:06)
[2018-11-10] MEDS: FOLIC ACID 1 MG TABLET PO SCH (09:06)
[2018-11-10] MEDS: MULTIVITAMIN TAB PO SCH (09:07)
[2018-11-10] MEDS: THIAMINE HCL 100 MG TABLET PO SCH (09:07)
[2018-11-10] MEDS ORDERED: MAGNESIUM SULFATE 1 gm IVPB 1 GM/100 ML BAG IV ONE (09:16)
[2018-11-10 10:47] VITALS: O2SAT 97
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
--- NOTE | 2018-11-13 14:01 | EEG ---
CHART: [id number] TEST ID#: [id number] DATE OF STUDY: 11/09/2018 THE EEG WAS RECORDED PORTABLE IN THE PATIENTS ROOM ON A 17 CHANNEL MACHINE. ELECTRODES WERE APPLIED IN THE USUAL MANNER USING THE INTERNATIONAL 10-20 SYSTEM. THE WAKING BACKGROUND RHYTHM IN THIS RECORD CONSISTS OF VERY WELL DEVELOPED AND WELL ORGANIZED WAVES OF 11 HZ., MAXIMAL IN THE POSTERIOR HEAD REGIONS WHICH ATTENUATE NORMALLY WITH EYE OPENING. LOW-VOLTAGE 18-22 HZ ACTIVITY IS EXPRESSED IN THE FRONTAL, CENTRAL, AND TEMPORAL REGIONS. THERE ARE NO FOCAL OR LATERALIZING FEATURES. NO EPILEPTIFORM ACTIVITY APPEARS. SLEEP OCCURRED NATURALLY. IN ADDITION TO NORMAL SLEEP PATTERNS ARE PRESENT. HYPERVENTILATION WAS NOT PREFORMED. PHOTIC STIMULATION PRODUCED GOOD DRIVING BILATERALLY. IMPRESSION: NORMAL EEG FOR THE AGE OF THE PATIENT IN [place], DROWSINESS AND SLEEP.
== END 2018-11-10 11:25 | disposition home or self-care (01) | DRG 897 ==
LOC: ER 20:35 → ERHOLD 11-09 02:32 → 4TH 11-09 02:34
PROVIDERS: ADMIT Hospitalist; ATTEND Family Medicine
DX: F10.232 Alcohol dependence with withdrawal with perceptual disturbance (principal); G40.89 Other seizures; T51.0X4A Toxic effect of ethanol, undetermined, initial encounter; F17.210 Nicotine dependence, cigarettes, uncomplicated
CPT/HCPCS: 36415; 70450; 71045; 72125; 80048; 80053; 80076; 80307; 80320; 81003; 83735; 84100; 84132; 85025; 85610; 85730; 93005; 95816; 96374; 96375; 97163; 99285; G0008; J1650; J3411; J3475; J7030; Q2009; Q2035

== ENCOUNTER 2019-01-18 08:02 | Emergency (ER) | payer SELFPAY ==
[2019-01-18] MEDS ORDERED: MIDAZOLAM HCL 2 MG/2 ML INJ ONE (08:11)
[2019-01-18] MEDS ORDERED: RSI MEDICATION KIT IV ONE (08:11)
[2019-01-18] MEDS ORDERED: NA CHLORIDE 0.9% 2,000 ML ONE (08:12)
[2019-01-18] MEDS ORDERED: LORazepam 2 MG/ML VIAL ONE (08:14)
[2019-01-18] MEDS ORDERED: PROPOFOL 1,000 MG/100 ML VIAL IV ONE (08:23)
[2019-01-18 08:37] LABS: Absolute Lymphocytes (CBC) 0.9 K/uL (0.7-4.9); Absolute Monocytes 0.5 K/uL (0.1-1.3); Absolute Neutrophil 7.7 K/uL (1.8-8.0); Basophils % 0.7 % (0-1.3); Eosinophils % 0.1 % (0-4.4); Lymphocytes % 10.1 % (15.3-44.8); MPV 7.6 fL (7.6-11.3); Monocytes % 5.4 % (3.3-12.3); Protime INR 1.04; RBC Red Blood Cell Count 3.53 M/uL (4.33-5.43)
--- NOTE | 2019-01-18 08:55 | RAD REPORT ---
EXAM DESCRIPTION: RAD - Chest Single View - 01/18/2019 8:46 am CLINICAL HISTORY: intubated Chest pain. COMPARISON: Chest Single View dated 11/08/2018; Chest Single View dated 08/17/2018 FINDINGS: Portable technique limits examination quality. Tip of the ET tube is above the wild. Enteric tube descends into the stomach. Mild asymmetric pulmo nary opacities are noted, greater on the right, suspicious for pneumonia/aspiration. The heart is nor mal in size. No displaced fractures.
[2019-01-18 09:00] LABS: ALT/SGPT 26 U/L (12-78); AST/SGOT 54 U/L (15-37); Albumin 4.1 g/dL (3.4-5.0); Alkaline Phosphatase 89 U/L (45-117); BUN Blood Urea Nitrogen 9 mg/dL (7-18); Bicarbonate 26 mmol/L (21-32); Bilirubin Direct 0.1 mg/dL (0-0.2); Bilirubin Total 0.5 mg/dL (0.2-1.0); Glucose Level 192 mg/dL (74-106); Potassium 3.5 mmol/L (3.5-5.1); Protein, Total 8.6 g/dL (6.4-8.2); Sodium Level 133 mmol/L (136-145)
[2019-01-18 09:01] LABS: Magnesium 1.4 mg/dL (1.8-2.4)
--- NOTE | 2019-01-18 09:09 | RAD REPORT ---
EXAM DESCRIPTION: CT - Head Brain Wo Cont - 01/18/2019 9:02 am CLINICAL HISTORY: MENTAL STATUS CHANGE Headache, drowsiness COMPARISON: No comparisons TECHNIQUE: All CT scans are performed using dose optimization technique as appropriate and may inclu de automated exposure control or mA/KV adjustment according to patient size. FINDINGS: A very large acute left convexity subdural hematoma is present measuring 2.4 cm in maximum thickness. Marked bgbv-ii-[id number] midline shift of 2.5 cm is seen.Mild dilatation of the right lateral ventricle is seen. The paranasal sinuses and mastoids are clear. The calvarium is intact. IMPRESSION: Very large acute left subdural hematoma with 2.5 cm wmve-le-sdarm midline shift. The findings were discussed with ER physician Dr. Sanon on 01/18/2019 at 9:05 a.m. by telephone.
[2019-01-18 09:16] LABS: Arterial Blood Carboxyhemoglob 2.3 % (0-1.5); Blood Gas Oxyhemoglobin 95.5 % (94-97)
--- NOTE | 2019-01-18 09:20 | EDPHYS ---
Physician Documentation [facility] Name: Tariq Main Age: 58 yrs Sex: Male : 1960 Arrival Date: 01/18/2019 Time: 08:03 Bed 2 Private MD: ED Physician HPI: 01/18 08:25 This 58 yrs old Black Male presents to ER via Unassigned with complaints of catalino unresponsive alcoholic. 08:25 The patient's problem is reported as syncope. Onset: The symptoms/episode catalino began/occurred just prior to arrival. The symptoms are alleviated by nothing. The symptoms are aggravated by nothing. The patient presents with obtunded. Possible causes: CVA or TIA, alcohol, head injury, sepsis. Historical: - Allergies: 08:39 Unable to obtain; ch - Home Meds: 08:39 Unable to obtain [Active]; ch - PMHx: 08:39 Unable to obtain; ch - PSHx: 08:39 Unable to obtain; ch - Immunization history:: Adult Immunizations unknown. - Social history:: Smoking status: unknown. - Family history:: not pertinent. - Ebola Screening: : Patient negative for fever greater than or equal to 101.5 degrees Fahrenheit, and additional compatible Ebola Virus Disease symptoms Unable to complete screening because patient is intubated. ROS: 08:25 Unable to obtain ROS due to obtunded state. catalino 08:29 MS/Extremity: Negative for injury and deformity. catalino Exam: 08:25 Head/Face: Normocephalic, atraumatic. catalino 08:25 Eyes: Periorbital structures: appear normal, no acute changes, Pupils: no acute changes, Extraocular movements: no acute changes, Conjunctiva: normal, Corneas: are normal, Sclera: no appreciated abnormality. 08:25 Cardiovascular: Rate: tachycardic, Rhythm: regular, Pulses: Pulses are 4+ in bilateral radial, brachial, femoral, popliteal, posterior tibial and and dorsalis pedis arteries.. 08:25 Respiratory: moderate respiratory distress is noted, Respirations: labored breathing, that is mild, that is moderate, Breath sounds: rhonchi, wheezing: expiratory 08:30 Radiologist reports: see radiology reports [facility] Vital Signs: 08:02 BP 212 / 106; Pulse 137; Resp 42; Temp 98.1(C); Pulse Ox 90% on Non-rebreather mask; ch Weight 70 kg; Height 5 ft. 5 in. (165.10 cm); 08:30 BP 176 / 98; Pulse 110; Resp 16; Temp 97.9; Pulse Ox 98% on ETT vent; ch 08:43 BP 181 / 90; Pulse 110; Resp 22; Temp 98.2; Pulse Ox 100% on R/A; ch 09:10 BP 167 / 84; Pulse 110; Resp 32; Temp 98.8; Pulse Ox 99% on ETT vent; ch 10:12 BP 168 / 87; Pulse 103; Resp 27; Temp 98.9; Pulse Ox 99% on ETT vent; ch 11:00 BP 154 / 78; Pulse 110; Resp 28; Temp 98.2(C); Pulse Ox 99% on ETT vent; Pain 0/10; ch 08:02 Body Mass Index 25.68 (70.00 kg, 165.10 cm) Procedures: 08:28 Intubation: Ventilated with 100% NRB prior to procedure. Intubated orally using # 3 catalino Smith blade with 8.0 mm ETT. was successful on first attempt. Ventilated with Ambu bag. Placement verified by CXR, CO2 detector with (+) color change, auscultating bilateral breath sounds, O2 saturation after procedure was 100 %. Central Line: the site was prepped with Betadine, in sterile fashion, a triple lumen catheter was inserted, in the right femoral vein, in 1 attempts. placement was verified, by blood return, the site was dressed with using sterile technique, the patient tolerated the procedure, well. MDM: 08:22 Patient medically screened. [facility] 08:25 Data reviewed: vital signs, nurses notes, lab test result(s), EKG, radiologic studies, [facility] CT scan, plain films. 01/18 08:08 Order name: Basic Metabolic Panel eb 01/18 08:08 Order name: CBC with Diff eb 01/18 08:08 Order name: LFT's eb 01/18 08:08 Order name: Magnesium eb 01/18 08:08 Order name: NT PRO-BNP eb 01/18 08:08 Order name: PT-INR; Complete Time: 08:52 eb 01/18 08:08 Order name: Troponin (emerg Dept Use Only) eb 01/18 08:08 Order name: ABG 01/18 08:08 Order name: Acetaminophen 01/18 08:08 Order name: Salicylate 01/18 08:09 Order name: Basic Metabolic Panel; Complete Time: 09:15 EDMS 01/18 08:09 Order name: CBC with Automated Diff; Complete Time: 08:52 EDMS 01/18 08:08 Order name: XRAY Chest (1 view); Complete Time: 09:15 01/18 08:09 Order name: Liver (Hepatic) Function; Complete Time: 09:15 EDMS 01/18 08:09 Order name: Magnesium; Complete Time: 09:15 EDMS 01/18 08:24 Order name: CT Head Brain wo Cont; Complete Time: 09:15 [facility] 01/18 08:24 Order name: Blood Culture Adult (2) [facility] 01/18 08:24 Order name: Procalcitonin [facility] 01/18 08:24 Order name: Lactate [facility] 01/18 09:20 Order name: CT C Spine 01/18 08:08 Order name: EKG; Complete Time: 08:10 01/18 08:08 Order name: Cardiac monitoring; Complete Time: 08:29 01/18 08:08 Order name: EKG - Nurse/Tech; Complete Time: 08:29 01/18 08:08 Order name: IV Saline Lock; Complete Time: 08:29 01/18 08:08 Order name: Labs collected and sent; Complete Time: 08:29 01/18 08:08 Order name: O2 Per Protocol; Complete Time: 19:25 01/18 08:08 Order name: O2 Sat Monitoring; Complete Time: 08:29 eb Administered Medications: 08:01 Drug: Ativan 2 mg Route: IVP; Site: left antecubital; ch 19:24 Follow up: Response: No adverse reaction ch 08:03 Drug: Versed 4 mg Route: IVP; Site: left antecubital; ch 19:25 Follow up: Response: No adverse reaction ch 08:04 Drug: Lidocaine 100 mg Route: IVP; Site: left antecubital; ch 19:25 Follow up: Response: No adverse reaction ch 08:05 Drug: Etomidate 20 mg Route: IVP; Site: left antecubital; ch 19:24 Follow up: Response: No adverse reaction ch 08:06 Drug: Succinylcholine 80 mg Route: IVP; Site: left antecubital; ch 19:24 Follow up: Response: No adverse reaction ch 08:10 Drug: NS 0.9% 1000 ml Route: IV; Rate: 1 bolus; Site: left antecubital; ch 08:30 Drug: ProTONIX 40 mg Route: IVP; Site: left antecubital; ch 19:25 Follow up: Response: No adverse reaction ch 08:40 Drug: Propofol 5 mcg/kg/min Route: IV; Rate: calculated rate; Site: left antecubital; ch 11:10 Follow up: IV Status: Infusion continued upon transfer ch 09:00 Drug: Thiamine 100 mg Route: IV; Rate: bolus; Site: left antecubital; ch 09:45 Drug: Zosyn 3.375 grams Route: IVPB; Infused Over: 60 mins; Site: right femoral; ch 09:55 Drug: Vitamin K1 10 mg Route: Sub-Q; Site: abdomen; ch 19:24 Follow up: Response: No adverse reaction ch 09:55 Drug: Magnesium Sulfate 2 grams Route: IVPB; Infused Over: 2 hrs; Site: right femoral; ch 11:00 Follow up: IV Status: Infusion continued upon transfer Disposition: 01/18/19 09:19 Transfer ordered to [facility]. Diagnosis are Nontraumatic subdural hemorrhage - 2.4 cm with 2.5 cm left to right shift, Alcohol abuse, Hypomagnesemia. - Reason for transfer: Higher level of care. - Accepting physician is to [facility]. - Condition is Critical. - Problem is new. - Symptoms are unchanged. Signatures: Dispatcher [employer] EDFallon West RN RN ch Anderson, Corey, MD MD cha Botello, Elizabeth eb Corrections: (The following items were deleted from the chart) 09: 09:19 01/18/2019 09:19 Transfer ordered to [facility]. Diagnosis is catalino Nontraumatic subdural hemorrhage - 2.4 cm with 2.5 cm left to right shift. Reason for transfer: Higher level of care. Accepting physician is to [facility]. Condition is Critical. Problem is new. Symptoms are unchanged. [facility] 11:18 09:20 01/18/2019 09:19 Transfer ordered to [facility]. Diagnosis is ch Nontraumatic subdural hemorrhage - 2.4 cm with 2.5 cm left to right shift; Alcohol abuse; Hypomagnesemia. Reason for transfer: Higher level of care. Accepting physician is to [facility]. Condition is Critical. Problem is new. Symptoms are unchanged. [facility] 19:22 11:18 01/18/2019 09:19 Transfer ordered to [facility]. Diagnosis is ch Nontraumatic subdural hemorrhage - 2.4 cm with 2.5 cm left to right shift; Alcohol abuse; Hypomagnesemia. Reason for transfer: Higher level of care. Accepting physician is to [facility]. Condition is Critical. Problem is new. Symptoms are unchanged.
--- NOTE | 2019-01-18 09:20 | ER ---
Nurse's Notes [facility] Name: Tariq Main Age: 58 yrs Sex: Male : 1960 Arrival Date: 01/18/2019 Time: 08:03 Bed 2 Private MD: Diagnosis: Nontraumatic subdural hemorrhage-2.4 cm with 2.5 cm left to right shift;Alcohol abuse;Hypomagnesemia Presentation: 01/18 08:02 Presenting complaint: EMS states: pt found down by sister this morning, unresponsive. pt is a nomad, moves from family member to family member because of his drinking. last seen normal around 1999 last night. unknown medical hx, sister states she doesn't think he takes any medications. pt vomited x3 in route, initial RA O2 was 86, agonal resps. Transition of care: patient was not received from another setting of care. Onset of symptoms is unknown. Risk Assessment: Do you want to hurt yourself or someone else? Unable to obtain. Initial Sepsis Screen: Does the patient meet any 2 criteria? RR > 20 per min. Altered Mental Status. HR > 90 bpm. Yes Does the patient have a suspected source of infection? No. Patient's initial sepsis screen is negative. Care prior to arrival: pt placed on NRB. 08:35 Method Of Arrival: EMS: [facility] 08:35 Acuity: REY 1 Triage Assessment: 08:00 General: Appears distressed, unkempt, Behavior is unresponsive. Pain: Unable to use pain scale. Patient is unresponsive. 08:02 Neuro: Level of Consciousness is unresponsive. Respiratory: Airway is compromised Trachea midline Respiratory effort is gasping, agonal Breath sounds are diminished bilaterally. Breath sounds with rhonchi bilaterally. GI: Pt is actively vomiting pt has soiled and defecated himself. 08:02 Derm: Skin is black, dusky, Skin temperature is cool. 08:05 EENT: Oral mucosa is dry. Poor dentition noted. pt has blood around mouth. 08:05 Neuro: Level of Consciousness is. Cardiovascular: Heart tones S1 S2 present Capillary ch refill is sluggish in bilateral fingers toes Clubbing of nail beds is present Rhythm is sinus tachycardia. Respiratory: Historical: - Allergies: 08:39 Unable to obtain; - Home Meds: 08:39 Unable to obtain [Active]; ch - PMHx: 08:39 Unable to obtain; - PSHx: 08:39 Unable to obtain; - Immunization history:: Adult Immunizations unknown. - Social history:: Smoking status: unknown. - Family history:: not pertinent. - Ebola Screening: : Patient negative for fever greater than or equal to 101.5 degrees Fahrenheit, and additional compatible Ebola Virus Disease symptoms Unable to complete screening because patient is intubated. Screenin:00 Abuse screen: Denies threats or abuse. Denies injuries from another. Nutritional screening: No deficits noted. Tuberculosis screening: No symptoms or risk factors identified. Fall Risk Fall in past 12 months (25 points). Secondary diagnosis (15 points) IV access (20 points). Ambulatory Aid- None/Bed Rest/Nurse Assist (0 pts). Gait- Normal/Bed Rest/Wheelchair (0 pts) Mental Status- Overestimates/Forgets Limitations (15 pts.). Total Duran Fall Scale indicates High Risk Score (45 or more points). Fall prevention measures have been instituted. Side Rails Up X 2 Frequent Obs/Assessments Occuring. Assessment: 09:10 Respiratory: Airway is patent Trachea midline Respiratory effort is even, unlabored, Breath sounds are coarse bilaterally. GI: Abdomen is flat, non-distended, Bowel sounds present X 4 quads. Derm: Skin is black. 10:12 Reassessment: Patient appears in no apparent distress at this time. Patient and/or family updated on plan of care and expected duration. Pain level reassessed. awaiting ems arrival. pt is unresponsive, intubated, sedated, vitals stble. 10:14 Reassessment: pt transported to nc with myself, aquatics director, and rt, once at 0850, then again at 0920. 10:40 Neuro: Level of Consciousness is unresponsive, intubated. . 11:10 Reassessment: Patient appears in no apparent distress at this time. No changes from previously documented assessment. Vital Signs: 08:02 BP 212 / 106; Pulse 137; Resp 42; Temp 98.1(C); Pulse Ox 90% on Non-rebreather mask; Weight 70 kg; Height 5 ft. 5 in. (165.10 cm); 08:30 BP 176 / 98; Pulse 110; Resp 16; Temp 97.9; Pulse Ox 98% on ETT vent; ch 08:43 BP 181 / 90; Pulse 110; Resp 22; Temp 98.2; Pulse Ox 100% on R/A; ch 09:10 BP 167 / 84; Pulse 110; Resp 32; Temp 98.8; Pulse Ox 99% on ETT vent; ch 10:12 BP 168 / 87; Pulse 103; Resp 27; Temp 98.9; Pulse Ox 99% on ETT vent; ch 11:00 BP 154 / 78; Pulse 110; Resp 28; Temp 98.2(C); Pulse Ox 99% on ETT vent; Pain 0/10; ch 08:02 Body Mass Index 25.68 (70.00 kg, 165.10 cm) Vitals: 11:00 Cardiac Rhythm Assessment Sinus tach. ED Course: 08:03 Patient arrived in ED. iw 08:09 Assisted provider with intubation using 8.0 mm ETT via oral route. ET tube secured at 23cm at the teeth. Set up intubation tray. Intubated by Ad Sanon MD Placement verified by CO2 detector w/ + color change, auscultating bilateral breath sounds, Patient tolerated well. 08:17 EKG done, by centrifugal chiller technician. reviewed by Ad Sanon MD. at1 08:21 Ad Sanon MD is Attending Physician. catalino 08:29 Fallon Richardson, RN is Primary Nurse. ch 08:30 assistant field hockey coach on. Pulse ox on. NIBP on. ch 08:32 Patient has correct armband on for positive identification. Bed in low position. Call light in reach. Side rails up X2. 08:35 Assisted provider with central line placement. Set up central line tray. Triple lumen line placed in right femoral. Line placed by Ad Sanon MD Placement verified by blood return, Dressed with Tegaderm, Blood was collected. Patient tolerated well. Before procedure, did Practitioner(s) obtain informed consent? No. Patient \T\ family education about procedure, CLABSI prevention and S/S of infection? No. Time-out/Briefing performed prior to start of procedure? Yes. Was handwashing/sanitizing done immediately prior to procedure? Yes. Was patient positioned to in a way to prevent air embolism? Yes. Was procedure site sterilized? Yes, with chlorhexidine. Was the site allowed to dry? Yes. Was local anesthetic and/or sedation utilized? Yes. During the procedure, did the Practitioner(s) maintain a sterile field? Yes. Were unused ports clamped during insertion? Yes. Was a 2nd qualified MD obtained after 3 unsuccessful insertion attempts? N/A. Was blood aspirated from each lumen? Yes. After the procedure, did the Practitioner(s) clean the site and apply a sterile dressing? Yes. 08:35 Maintain EMS IV. Dressing intact. Good blood return noted. Site clean \T\ dry. Gauge \T\ ch site: 18 L AC. Patient transferred, IV remains in place. 08:38 Triage completed. 08:40 No apparent distress. 08:43 Arm band placed on left wrist. Patient placed in an exam room, on a stretcher, on oxygen, on cardiac surgeon, on pulse oximetry, physician in room to intubate. 08:46 XRAY Chest (1 view) In Process Unspecified. EDMS 09:02 CT Head Brain wo Cont In Process Unspecified. EDMS 09:[address] Sanon with Sarah Cazares from the [facility] eb center. 09:[address] Myers the neurologist salon/spa manager for [facility] with Dr. Sanon for eb patient transfer consultation. 09:29 administrative approval given by Rossy Cazares RN accounts receivable coordinator at the [facility]/ patient has accepted to [facility] 7 south bed 3/ Dr. Myers has accepted the patient in transfer/ report to be called to [phone]. 09:39 CT C Spine In Process Unspecified. EDMS 10:17 Castrejon cath inserted, using sterile technique, 16 Fr., by glaciologist, balloon inflated, to gravity drainage, urine specimen collected. returned clear yellow urine. Patient tolerated well. NGT: inserted 16 Fr. other OG verified placement of air over stomach, verified return of gastric contents, Placement verified by X-ray, to intermittent suction. Returned gastric contents. Patient tolerated well. 19:21 Primary Nurse role handed off by Fallon Richardson, RN 19:21 Attending Physician role handed off by Ad Sanon MD 19:21 Fallon Richardson, RN is Primary Nurse. ch Administered Medications: 08:01 Drug: Ativan 2 mg Route: IVP; Site: left antecubital; ch 19:24 Follow up: Response: No adverse reaction ch 08:03 Drug: Versed 4 mg Route: IVP; Site: left antecubital; ch 19:25 Follow up: Response: No adverse reaction ch 08:04 Drug: Lidocaine 100 mg Route: IVP; Site: left antecubital; ch 19:25 Follow up: Response: No adverse reaction ch 08:05 Drug: Etomidate 20 mg Route: IVP; Site: left antecubital; ch 19:24 Follow up: Response: No adverse reaction ch 08:06 Drug: Succinylcholine 80 mg Route: IVP; Site: left antecubital; ch 19:24 Follow up: Response: No adverse reaction ch 08:10 Drug: NS 0.9% 1000 ml Route: IV; Rate: 1 bolus; Site: left antecubital; ch 08:30 Drug: ProTONIX 40 mg Route: IVP; Site: left antecubital; ch 19:25 Follow up: Response: No adverse reaction ch 08:40 Drug: Propofol 5 mcg/kg/min Route: IV; Rate: calculated rate; Site: left antecubital; ch 11:10 Follow up: IV Status: Infusion continued upon transfer ch 09:00 Drug: Thiamine 100 mg Route: IV; Rate: bolus; Site: left antecubital; ch 09:45 Drug: Zosyn 3.375 grams Route: IVPB; Infused Over: 60 mins; Site: right femoral; ch 09:55 Drug: Vitamin K1 10 mg Route: Sub-Q; Site: abdomen; ch 19:24 Follow up: Response: No adverse reaction ch 09:55 Drug: Magnesium Sulfate 2 grams Route: IVPB; Infused Over: 2 hrs; Site: right femoral; ch 11:00 Follow up: IV Status: Infusion continued upon transfer ch Outcome: 09:19 ER care complete, transfer ordered by . catalino 09:53 Transferred by ground EMS Note: report called to Yani Sharpe ch 11:10 Condition: stable ch 11:18 Patient left the ED. ch 19:22 Patient left the ED. ch Signatures: Dispatcher [employer] EDMS Fallon Richardson RN RN ch Anderson, Corey, MD MD cha Williams, Irene, RN RN Nettles, Jana, paper products machine operator EKG Tat1 Christine Sam
[2019-01-18 09:22] LABS: NT PRO-BNP 156 pg/mL (<125); Troponin (Emerg Dept Use Only) < 0.02 ng/mL (0.0-0.045)
[2019-01-18] MEDS ORDERED: PIPER/TAZO/NS 3.375gm 3.375 GM/100 ML BAG ONE (09:25)
[2019-01-18] MEDS ORDERED: THIAMINE 200 MG/2 ML INJ ONE (09:25)
--- NOTE | 2019-01-18 09:51 | RAD REPORT ---
EXAM DESCRIPTION: CT - C Spine Wo Con - 01/18/2019 9:39 am CLINICAL HISTORY: unresponsive Trauma, head injury, subdural hematoma. COMPARISON: Head C Spine Mpr Wo Con dated 11/08/2018; Head C Spine Mpr Wo Con dated 08/17/2018 FINDINGS: Multilevel degenerative changes present throughout the cervical spine. Vertebral body heig hts maintained. No evidence of acute cervical spine fracture or subluxation. Endotracheal and enteric tubes are present. Poorly defined linear opacities are present in the right lung. IMPRESSION: Negative for acute cervical spine abnormality. All CT scans are performed using dose optimization technique as appropriate and may include automated exposure control or mA/KV adjustment according to patient size.
[2019-01-18] MEDS ORDERED: PANTOPRAZOLE 40 MG INJ ONE (10:10)
[2019-01-18] MEDS ORDERED: Magnesium Sulfate 2gm IVPB 2 G/50 ML BAG IV ONE (10:11)
[2019-01-18] MEDS ORDERED: VITAMIN K (ADULT) 10 MG/ML ONE (10:20)
[2019-01-18 11:30] VITALS: O2SAT 99
[2019-01-18] MEDS ORDERED: ETOMIDATE 20 MG/10 ML VIAL IV ONE ×2 (12:00)
[2019-01-18] MEDS ORDERED: SUCCINYLCHOLINE 20 MG/ML (10 ML) IV ONE (12:00)
[2019-01-18] MEDS ORDERED: LIDOCAINE 2% MPF 5 ML VIAL ONE (12:00)
--- NOTE | 2019-01-18 14:43 | EKG ---
Test Date: 2019-01-18 Test Time: 08:17:42 [place] Department Worker: SADIE MEASUREMENT RESULTS: Intervals: Rate: 116 KS: 126 QRSD: 76 QT: 340 QTc: 472 [place]: P: 83 KS: 126 QRS: 78 T: 52 INTERPRETIVE STATEMENTS: Sinus tachycardia Possible Left atrial enlargement Marked ST abnormality, possible inferior subendocardial injury Abnormal ECG Compared to ECG 11/08/2018 22:17:12 Sinus rhythm no longer present Early repolarization no longer present ST (T wave) deviation still present Electronically Signed On 01-18-19 14:41:00 CDT by Ralph Jovel
[2019-01-18 20:38] VITALS: BP 154/78; TEMP 98.2
== END 2019-01-18 19:22 | disposition short-term general hospital (02) ==
LOC: ER 08:02
PROC: 0BH17EZ Insertion of Endotracheal Airway into Trachea, Via Natural or Artificial Opening (ICD-10-PCS; principal; 2019-01-18)
PROC: 06HM33Z Insertion of Infusion Device into Right Femoral Vein, Percutaneous Approach (ICD-10-PCS; 2019-01-18)
DX: I62.00 Nontraumatic subdural hemorrhage, unspecified (principal); F10.10 Alcohol abuse, uncomplicated; E83.42 Hypomagnesemia
CPT/HCPCS: 36415; 51702; 70450; 71045; 72125; 80048; 80076; 80329; 82805; 83605; 83735; 83880; 84145; 84484; 85025; 85610; 87040; 87205; 93005; 94002; 96372; 99291; C9113; J0330; J2250; J2543; J2704; J3411; J3430; J3475; J7030